=== PATIENT | male | born 1990 | race Caucasian/White ===

== ENCOUNTER → 2019-06-08 | Outpatient (CLI) | payer BC ==
[~2019-06-08] MED LIST: Cipro500 MG PO; Cortisporin Ear10 ML RIGHTEAR; Naprosyn500 MG PO; Norco 5-325 Ta1 EACH PO; PENVK500 PO
== END | disposition home or self-care (01) ==
LOC: LAB EV 11:23 → LAB SHORT 11:23
DX: J02.9 Acute pharyngitis, unspecified (principal)
CPT/HCPCS: 87081

== ENCOUNTER 2021-01-12 06:11 | Day surgery (SDC) | payer BC ==
[~2021-01-12] VITALS: Ht 175.3 cm; Wt 68.3 kg
[~2021-01-12 06:11] MED LIST changes: +CEPHALEXIN500 M2 PO
--- NOTE | 2021-01-12 06:38 | NUR ---
PATIENT HAD COFFEE AND CREAM AT 0500, PROCEDURE POSTPONED.
--- NOTE | 2021-01-12 13:18 | NUR ---
[facility]ulatory in [facility] warming gown applied. History, Chart, Medications and Allergies reviewed before start of procedure.Lungs clear T/O to Auscultation. Patient confirms NPO status and agrees with scheduled surgery. Pre-Op teaching done. Pt verbalizes understanding. Patient States Post-Procedure ride home has been arranged.
--- NOTE | 2021-01-12 14:13 | NUR ---
01/12/21 1413 Julita Haskins AFTER PATIENT INTUBATED PATIENT WAS POSITIONED IN THE PRONE POSITION WITH DR. PHAM ASSIST. [id number] PADDED, POSITIONED AND SECURED. FINAL POSITION CLEARED BY DR. PHAM. PENIS AND SCROTUM CLEARED. SILK TAPE APPLIED TO BUTTOCKS BY SURGEON.
--- NOTE | 2021-01-12 14:58 | NUR ---
PATIENT ARRIVED INTO PACU DENNIES PAIN REFUSED WARM BLANKET AT FIRST NOW REQUESTING WARM BLANKET CONTINUES TO DENIE PAIN.
--- NOTE | 2021-01-12 15:24 | NUR ---
Patient up to Ambulate independently. Gait steady. Benja Paws warming gown applied. Discharge instructions reviewed with patient. Patient verbalizes understanding. Copy given to patient to take home.Lungs clear T/O to Auscultation. Patient States Post-Procedure ride home has been arranged. Discharged via wheelchair to private car for ride home.
== END 2021-01-12 15:57 | disposition home or self-care (01) ==
LOC: ORSCMMR 06:11 → ORD 07:30 → ORSCMMR 15:57
PROVIDERS: Surgery
PROC: 0D9Q0ZZ Drainage of Anus, Open Approach (ICD-10-PCS; principal; 2021-01-12 13:00)
DX: K60.3 Anal fistula (principal); F17.210 Nicotine dependence, cigarettes, uncomplicated
CPT/HCPCS: A9270; J0171; J0295; J1100; J1885; J2250; J2405; J2704; J2710; J3010; J7120